=== PATIENT | male | born 1985 | race African-American/Black ===

== ENCOUNTER 2020-11-10 07:09 | Inpatient (IN) | payer BC ==
[2020-11-10] MEDS ORDERED: NORMAL SALINE 1000 ML 1,000 ML IV ONE ×2 (07:26→10:40)
--- NOTE | 2020-11-10 07:49 | ER Document Report ---
Entered by PALMA BENJAMIN SCRIBE 11/10/20 0713 Acting as scribe for:MO MISHRA MD ED Respiratory Problem - General Stated Complaint: DIFFICULTY BREATHING Time Seen by Provider: 11/10/20 07:12 Mode of Arrival: Ambulatory Information source: Patient Notes: This 34 year old male patient with no significant past medical history presents to the ED today for evaluation. Patient states that his symptoms started with fatigue and nonproductive cough x2 weeks ago, but the coughing stopped x6 days ago. He also reports intermittent fevers with body aches during the first week of symptom onset. He started becoming short of breath and dyspneic on exertion this week. He mentions that he was seen x2 days ago at a local urgent care and was told that he tested negative for COVID. He was prescribed an albuterol inhaler. He did not receive a flu shot this flu season. Per nursing, patient was 92% on room air. When asked to take a deep breath on exam, patient reports right-sided pleuritic chest pain. - Related Data Allergies/Adverse Reactions: No Known Allergies Allergy (Verified 08/14/12 08:34) Past Medical History - General Information source: Patient - Social History Smoking Status: Never Smoker Cigarette use (# per day): No Chew tobacco use (# tins/day): No Smoking Education Provided: No Frequency of alcohol use: None Drug Abuse: None Family History: Reviewed & Not Pertinent - Immunizations Immunizations up to date: Yes Hx Diphtheria, Pertussis, Tetanus Vaccination: Yes - 2006 Review of Systems - Review of Systems Constitutional: See HPI, Fever EENT: No symptoms reported Cardiovascular: See HPI, Chest pain - pleuritic, Dyspnea Respiratory: See HPI, Cough, Short of breath. denies: Sputum Gastrointestinal: No symptoms reported Genitourinary: No symptoms reported Male Genitourinary: No symptoms reported Musculoskeletal: See HPI, Muscle pain Skin: No symptoms reported Hematologic/Lymphatic: No symptoms reported Neurological/Psychological: No symptoms reported -: Yes All other systems reviewed and negative Physical Exam - Vital signs Vitals: Temp Pulse Resp BP 98.3 F 122 H 18 143/78 H 11/10/20 07:15 11/10/20 07:15 11/10/20 07:15 11/10/20 07:15 Interpretation: Normal - General General appearance: Alert In distress: None - HEENT Head: Normocephalic, Atraumatic Eyes: Normal Pupils: PERRL - Respiratory Respiratory status: No respiratory distress - 96% on 2L NC Chest status: Nontender Breath sounds: Normal. No: Wheezing Chest palpation: Normal - Cardiovascular Rhythm: Regular, Tachycardia Heart sounds: Normal auscultation Murmur: No - Abdominal Inspection: Normal Distension: No distension Bowel sounds: Normal Tenderness: Nontender - Abdomen soft Organomegaly: No organomegaly - Back Back: Normal, Nontender - Extremities General upper extremity: Normal inspection General lower extremity: Normal inspection. No: Edema - Neurological Neuro grossly intact: Yes Orientation: AAOx4 Kimberly Coma Scale Eye Opening: Spontaneous Christiano Coma Scale Verbal: Oriented Christiano Coma Scale Motor: Obeys Commands Kimberly Coma Scale Total: 15 - Psychological Associated symptoms: Normal affect, Normal mood - Skin Skin Temperature: Warm Skin Moisture: Dry Skin Color: Normal Course - Re-evaluation Re-evalutation: 11/10/20 10:42 The patient was evaluated during the global COVID-19 pandemic and that diagnosis was suspected/considered upon their initial presentation. Their evaluation, treatment and testing was consistent with current guidelines for patients who present with complaints or symptoms that may be related to COVID-19. 11/10/20 12:00 Patient has a positive coronavirus test. LDH is 417, serum ferritin is 6240, CRP is 227, chest x-ray suggest Covid pneumonia. D-dimer is elevated. CTA chest is ordered to exclude pulmonary emboli as a cause of his dyspnea and hypoxemia. 11/10/20 12:34 When the patient took off the oxygen to walk to the restroom, his oxygen saturation dropped to 89%. - Vital Signs Vital signs: Temp Pulse Resp BP Pulse Ox 98.3 F 122 H 34 H 138/79 H 98 11/10/20 07:15 11/10/20 07:15 11/10/20 14:01 11/10/20 13:02 11/10/20 14:01 - Laboratory Results Result Diagrams: 11/10/20 07:30 11/10/20 07:30 Laboratory Results Interpreted: 11/10/20 11/10/20 11/10/20 07:30 07:30 07:30 RDW 15.4 H Plt Count 458 H Baso % (Auto) 2.5 H D-Dimer 1.16 H BUN 22 H Creatinine 1.71 H Est GFR ( Amer) 55 L Est GFR (MDRD) Non-Af 46 L Glucose 114 H Ferritin 6240.00 H AST 140 H ALT 127 H Alkaline Phosphatase 34 L Lactate Dehydrogenase Creatine Kinase 473 H C-Reactive Protein 227.7 H Urine Protein Urine Blood 11/10/20 11/10/20 07:30 12:24 RDW Plt Count Baso % (Auto) D-Dimer BUN Creatinine Est GFR ( Amer) Est GFR (MDRD) Non-Af Glucose Ferritin AST ALT Alkaline Phosphatase Lactate Dehydrogenase 714 H Creatine Kinase C-Reactive Protein Urine Protein 30 H Urine Blood SMALL H Critical Laboratory Results Reviewed: Yes Attending or Supervising Physician who Reviewed Labs: MO MISHRA - Covid +, elevated Cr and BUN, ferritin, CRP, LDH - Radiology Results Radiology Results Interpreted: 11/10/20 12:34 CTA chest does not show pulmonary emboli, consistent with bilateral Covid pneumonia. Critical Radiology Results Reviewed: Yes Attending or Supervising Physician who Reviewed Radiology: MO MISHRA hest x-ray suggest Covid pneumonia Critical Care Note - Critical Care Note Total time excluding time spent on procedures (mins): 40 Comments: At least 40 minutes spent obtaining history from patient and his father. Time spent evaluating the patient with frequent reevaluations on and off oxygen. Time spent reviewing lab work, confirming he was Covid positive and had extremely high Covid markers suggesting a potentially laila course for the Covid pneumonia that was seen on his chest x-ray. Time spent with the hospitalist discussing the case and getting the patient admitted, having to go back to the patient because he indicated to the hospitalist he did not want to be admitted so I spent time discussing options and risks and essentially convincing the patient that he needed to stay in the hospital. Discharge - Discharge Clinical Impression: Pneumonia due to 2019-nCoV, Hypoxemia, Acute kidney injury, Tachycardia Condition: Stable Disposition: ADMITTED INPATIENT Admitting Provider: Evita (Hospitalist) Unit Admitted: IMCU I personally performed the services described in the documentation, reviewed and edited the documentation which was dictated to the scribe in my presence, and it accurately records my words and actions.
[2020-11-10 07:50] LABS: ABSOLUTE BASOPHILS # (AUTO) 0.2 10^3/uL (0.0-0.2); ABSOLUTE LYMPHOCYTES (AUTO) 1.7 10^3/uL (0.5-4.7); ABSOLUTE MONOCYTES (AUTO) 0.9 10^3/uL (0.1-1.4); ABSOLUTE NEUT (AUTO) 5.5 10^3/uL (1.7-8.2); BASOPHILS % (AUTO) 2.5 % (0-2); HEMATOCRIT 39.5 % (37.9-51.0); HEMOGLOBIN 13.5 g/dL (13.5-17.0); LYMPHOCYTES % (AUTO) 20.4 % (13-45); MEAN CORPUSCULAR HEMOGLOBIN 28.5 pg (27.0-33.4); MEAN CORPUSCULAR VOLUME 84 fl (80-97); MONOCYTES % (AUTO) 11.1 % (3-13); PLATELET COUNT 458 10^3/uL (150-450); RED BLOOD COUNT 4.73 10^6/uL (4.35-5.55); RED CELL DISTRIBUTION WIDTH 15.4 % (11.5-14.0); TOTAL CELLS COUNTED % (AUTO) 100 %; WHITE BLOOD COUNT 8.3 10^3/uL (4.0-10.5)
[2020-11-10 08:06] LABS: ALBUMIN 3.7 g/dL (3.5-5.0); ALKALINE PHOSPHATASE 34 U/L (38-126); ANION GAP 6 (5-19); ASPARTATE AMINO TRANSFERASE 140 U/L (17-59); BILIRUBIN,DIRECT 0.4 mg/dL (0.0-0.4); BILIRUBIN,TOTAL 0.8 mg/dL (0.2-1.3); BLOOD UREA NITROGEN 22 mg/dL (7-20); CALCIUM 8.8 mg/dL (8.4-10.2); CARBON DIOXIDE 29 mmol/L (22-30); CHLORIDE 103 mmol/L (98-107); CREATINE KINASE 473 U/L (55-170); GLUCOSE 114 mg/dL (75-110); POTASSIUM 4.8 mmol/L (3.6-5.0); TOTAL PROTEIN 6.9 g/dL (6.3-8.2)
--- NOTE | 2020-11-10 08:08 | RADIOLOGY REPORT (SQ) ---
EXAM DESCRIPTION: CHEST SINGLE VIEW IMAGES COMPLETED DATE/TIME: 11/10/2020 7:36 am REASON FOR STUDY: JOSEPH X 2 weeks, cough, fever COMPARISON: None. EXAM PARAMETERS: NUMBER OF VIEWS: One view. TECHNIQUE: Single frontal radiographic view of the chest acquired. RADIATION DOSE: NA LIMITATIONS: None. FINDINGS: LUNGS AND PLEURA: There is patchy bilateral airspace disease left greater than right worri some for multifocal pneumonia No pleural effusion. No pneumothorax. MEDIASTINUM AND HILAR STRUCTURES: No masses. Contour normal. HEART AND VASCULAR STRUCTURES: Heart normal in size. Normal vasculature. BONES: No acute findings. HARDWARE: None in the chest. OTHER: No other significant finding. IMPRESSION: Patchy bilateral alveolar and interstitial infiltrates left greater than right worrisome for pneumonia TECHNICAL DOCUMENTATION: JOB ID: [id number] 2010 [employer]- All Rights Reserved Reading location - IP/workstation name: [id number]
[2020-11-10 08:38] LABS: C-REACTIVE PROTEIN 227.7 mg/L (<10.0)
--- NOTE | 2020-11-10 12:21 | RADIOLOGY REPORT (SQ) ---
EXAM DESCRIPTION: CTA CHEST IMAGES COMPLETED DATE/TIME: 11/10/2020 9:06 am REASON FOR STUDY: Covid pneumonia, elevated D-dimer, hypoxia COMPARISON: Single-view chest same date. TECHNIQUE: CT scan of the chest performed using helical scanning technique with dynamic intravenous contrast injection. Images reviewed with lung, soft tissue and bone windows. Reconstructed coronal and sagittal MPR images reviewed. Additional 3 dimensional post-processing performed to develop Maximal Intensity Projection images (AZ P). All images stored on PACS. All CT scanners at this facility use dose modulation, iterative reconstruction, and/or weight based d osing when appropriate to reduce radiation dose to as low as reasonably achievable (ALARA). [facility]: Dose Right [facility]: CareDose [facility]: Dose Right [facility]: Teradose 4D [facility]: Infusion Resource CONTRAST TYPE AND DOSE: contrast/concentration: Isovue 300.00 mmol/ml; Total Contrast Delivered: 74. 0 ml; Total Saline Delivered: 47.0 ml Suboptimal contrast bolus. RENAL FUNCTION: Creatinine 1.71 RADIATION DOSE: CT Rad equipment meets quality standard of care and radiation dose reduction techniq ues were employed. CTDIvol: 6.6 - 18.3 mGy. DLP: 635 mGy-cm. . LIMITATIONS: Poor contrast bolus. Mild motion artifact. FINDINGS: LUNGS AND PLEURA: Patchy bilateral ground-glass opacities most pronounced in the upper lob es. There are some regions of consolidation posteriorly in the left upper lobe and anteriorly in the right upper lobe. Mild regions of consolidation posteriorly in the right middle lobe with mild patc hy opacities in the lower lobes bilaterally. Trace pleural fluid, slightly more pronounced on the le ft. No pneumothorax. AORTA AND GREAT VESSELS: No aneurysm. No dissection. HEART: No pericardial effusion. No significant coronary artery calcifications. PULMONARY ARTERIES: Suboptimal contrast bolus. No central pulmonary embolism identified. Some of th e distal most branches are not optimally assessed given contrast bolus is well as some mild motion ar tifact. HILAR AND MEDIASTINAL STRUCTURES: Mildly enlarged lymph nodes are probably reactive. HARDWARE: None in the chest. UPPER ABDOMEN: No significant findings. Limited exam. THYROID AND OTHER SOFT TISSUES: No masses. No adenopathy. BONES: No acute or significant finding. 3D MIPS: Confirm above findings. OTHER: No other significant finding. IMPRESSION: 1. Suboptimal contrast bolus for evaluation of the distal pulmonary arterial branches. No central pulmonary embolism. 2. Bilateral patchy ground-glass and consolidative opacities. While nonspecific, findings are likel y related to pneumonia secondary to COVID infection given reported history. COMMENT: Quality ID # [id number]: Final reports with documentation of one or more dose reduction techniques (e.g., Automated exposure control, adjustment of the mA and/or kV according to patient size, use of iterative reconstruction technique) TECHNICAL DOCUMENTATION: JOB ID: [id number] 2010 [employer]- All Rights Reserved Reading location - IP/workstation name: [email or web address]
[2020-11-10 12:56] LABS: APPEARANCE,URINE SLIGHTLY-CLOUDY; BILIRUBIN,URINE NEGATIVE (NEGATIVE); COLOR,URINE YELLOW; GLUCOSE, URINE NEGATIVE (NEGATIVE); KETONES,URINE NEGATIVE (NEGATIVE); LEUKOCYTE ESTERASE,URINE NEGATIVE (NEGATIVE); NITRITE,URINE NEGATIVE (NEGATIVE); PROTEIN,URINE 30 mg/dL (NEGATIVE); URINE SPECIFIC GRAVITY 1.034; UROBILINOGEN,URINE NEGATIVE mg/dL (<2.0)
[2020-11-10] MEDS ORDERED: ACETAMINOPHEN 325 MG TABLET PO PRN (13:10)
[2020-11-10] MEDS ORDERED: PROMETHAZINE HCL 25 MG TABLET PO PRN (13:10)
[2020-11-10] MEDS ORDERED: MAG HYDROX/AL HYDROX/SIMETH SUSP 30 ML UDCUP PO PRN (13:10)
[2020-11-10] MEDS ORDERED: TEMAZEPAM 15 MG CAPSULE PO PRN (13:10)
[2020-11-10] MEDS ORDERED: OXYCODONE-ACETAMINOPHEN 5-325 MG TABLET PO PRN (13:10)
[2020-11-10] MEDS ORDERED: MAGNESIUM HYDROXIDE SUSP 30 ML UDCUP PO PRN (13:10)
[2020-11-10] MEDS ORDERED: 1/2 NORMAL SALINE 1,000 ML IV PRN (13:10)
[2020-11-10] MEDS ORDERED: IPRATROPIUM/ALBUTEROL 0.5-2.5 MG/3 ML AMPUL NEB PRN (13:10)
[2020-11-10] MEDS ORDERED: ONDANSETRON HCL INJ/PF 4 MG/2 ML SDV IV PRN (13:10)
[2020-11-10] MEDS ORDERED: PROMETHAZINE HCL INJ 25 MG/1 ML VIAL IV PRN (13:10)
[2020-11-10] MEDS ORDERED: ONDANSETRON 4 MG TAB.RAPDIS PO PRN (13:10)
[2020-11-10] MEDS ORDERED: LABETALOL HCL INJ 20 MG/4 ML DISP.SYRIN IV PRN (13:16)
[2020-11-10] MEDS ORDERED: NORMAL SALINE 1000 ML 1,000 ML IV PRN (13:20)
[2020-11-10] MEDS ORDERED: AZITHROMYCIN 250 MG TABLET PO ONE (14:00)
[2020-11-10 14:28] LABS: FIBRINOGEN 539 mg/dL (209-497); INTERNATIONAL RATION (INR) 1.19; PROTHROMBIN TIME 15.3 SEC (11.4-15.4)
[2020-11-10 14:29] LABS: PARTIAL THROMBOPLASTIN TIME 34.4 SEC (23.5-35.8)
[2020-11-10 14:31] LABS: D-DIMER 0.99 ug/mL (0.00-0.50)
[2020-11-10 14:37] LABS: ARTERIAL BLOOD BASE EXCESS 0.3 mmol/L; ARTERIAL BLOOD FIO2 28%; ARTERIAL BLOOD HCO3 24.2 mmol/L (20-24); ARTERIAL BLOOD O2 SATURATION 97.2 % (94-98); ARTERIAL BLOOD PCO2 36.7 mmHg (35-45); ARTERIAL BLOOD PH 7.44 (7.35-7.45); ARTERIAL BLOOD PO2 90.7 mmHg (80-100); ARTERIAL BLOOD TOTAL CO2 25.3 mmol/L (23-27)
[2020-11-10] MEDS ORDERED: IVERMECTIN 3 MG TABLET PO SCH (15:00)
[2020-11-10] MEDS: CHOLECALCIFEROL (D3) 1,000 UNIT (25 MCG) TABLET PO SCH (15:13)
[2020-11-10] MEDS: ZINC SULFATE 220 MG CAPSULE PO SCH (15:13)
[2020-11-10] MEDS: ASPIRIN 81 MG TABLET, ENT COATED PO SCH (15:13)
[2020-11-10] MEDS: ASCORBIC ACID 500 MG TABLET PO SCH ×2 (15:13→18:27)
--- NOTE | 2020-11-10 17:06 | PDOC H&P ---
History of Present Illness Admission Date/PCP: 11/10/20 13:21 History of Present Illness: BALJINDER BOLIVAR is a 34 year old male with no significant past medical history presenting to ED complaining of worsening shortness of breath and fatigue. Patient developed fatigue and nonproductive cough about 2 weeks ago, his cough stopped however he still getting occasional fever and chills, persistent body ache and fatigue, and dyspnea on exertion. Patient seeked medical attention at a local urgent care 2 days prior to admission and was told that her COVID-19 test was negative, patient was discharged home with inhaled albuterol. Patient is stating that he has been treating his body aches with [id number]-fimiefa ibuprofen, he is also stating that he does not have much appetite and his p.o. intake has been down since getting sick. Patient denies any chest pain, nausea, vomiting, diarrhea, constipation or any urinary symptoms. In ED he was noted to be hypoxic on room air, with elevated inflammatory markers, a CTA was negative for PE however showed bilateral patchy groundglass and consolidative opacities likely due to pneumonia caused by COVID- 19 infection. Hospitalist was consulted for admission. Past Medical History Cardiac Medical History: Denies: Coronary Artery Disease, Hypertension Pulmonary Medical History: Denies: Asthma Endocrine Medical History: Denies: Diabetes Mellitus Type 1, Diabetes Mellitus Type 2 Psychiatric Medical History: Denies: Depression Social History Smoking Status: Never Smoker Family History Family History: Reviewed & Not Pertinent Parental Family History Reviewed: Yes Children Family History Reviewed: Yes Sibling(s) Family History Reviewed.: Yes Medication/Allergy Home Medications: No Home Medications 1 08/07/12 Allergies/Adverse Reactions: No Known Allergies Allergy (Verified 08/14/12 08:34) Review of Systems Review of Systems: as per hpi Physical Exam Vital Signs: Temp Pulse Resp BP Pulse Ox 98.5 F 95 20 144/90 H 98 11/10/20 16:54 11/10/20 16:54 11/10/20 16:54 11/10/20 16:54 11/10/20 16:54 Intake & Output 11/09/20 11/10/20 11/11/20 06:59 06:59 06:59 Intake Total 1999 Balance 1999 Weight 98.8 kg General appearance: PRESENT: no acute distress, well-developed, well-nourished Head exam: PRESENT: atraumatic, normocephalic Neck exam: ABSENT: carotid bruit, JVD, lymphadenopathy, thyromegaly Respiratory exam: PRESENT: clear to auscultation minda. ABSENT: rales, rhonchi, wheezes Cardiovascular exam: PRESENT: RRR, tachycardia. ABSENT: diastolic murmur, rubs, systolic murmur GI/Abdominal exam: PRESENT: normal bowel sounds, soft. ABSENT: distended, guarding, mass, organolmegaly, rebound, tenderness Neurological exam: PRESENT: alert, awake, oriented to person, oriented to place, oriented to time, oriented to situation, CN II-XII grossly intact. ABSENT: motor sensory deficit Skin exam: PRESENT: dry, intact, warm. ABSENT: cyanosis, rash Results Laboratory Results: 11/10/20 07:30 11/10/20 07:30 11/10/20 11/10/20 11/10/20 07:30 07:30 12:24 WBC 8.3 RBC 4.73 Hgb 13.5 Hct 39.5 MCV 84 MCH 28.5 MCHC 34.0 RDW 15.4 H Plt Count 458 H Seg Neutrophils % 66.0 Carbonic Acid HCO3/H2CO3 Ratio ABG pH ABG pCO2 ABG pO2 ABG HCO3 ABG O2 Saturation ABG Base Excess FiO2 Sodium 138.0 Potassium 4.8 Chloride 103 Carbon Dioxide 29 Anion Gap 6 BUN 22 H Creatinine 1.71 H Est GFR ( Amer) 55 L Glucose 114 H Calcium 8.8 Magnesium 2.1 Ferritin 6240.00 H Total Bilirubin 0.8 AST 140 H Alkaline Phosphatase 34 L C-Reactive Protein 227.7 H Total Protein 6.9 Albumin 3.7 Urine Color YELLOW Urine Appearance SLIGHTLY-CLOUDY Urine pH 6.0 Ur Specific Brimley 1.034 Urine Protein 30 H Urine Glucose (UA) NEGATIVE Urine Ketones NEGATIVE Urine Blood SMALL H Urine Nitrite NEGATIVE Ur Leukocyte Esterase NEGATIVE Urine WBC (Auto) 4 Urine RBC (Auto) 1 Blood Type 11/10/20 11/10/20 14:06 14:19 WBC RBC Hgb Hct MCV MCH MCHC RDW Plt Count Seg Neutrophils % Carbonic Acid 1.10 HCO3/H2CO3 Ratio 22:1 ABG pH 7.44 ABG pCO2 36.7 ABG pO2 90.7 ABG HCO3 24.2 H ABG O2 Saturation 97.2 ABG Base Excess 0.3 FiO2 28% Sodium Potassium Chloride Carbon Dioxide Anion Gap BUN Creatinine Est GFR ( Amer) Glucose Calcium Magnesium Ferritin Total Bilirubin AST Alkaline Phosphatase C-Reactive Protein Total Protein Albumin Urine Color Urine Appearance Urine pH Ur Specific Brimley Urine Protein Urine Glucose (UA) Urine Ketones Urine Blood Urine Nitrite Ur Leukocyte Esterase Urine WBC (Auto) Urine RBC (Auto) Blood Type O POSITIVE 11/10/20 11/10/20 07:30 07:30 Creatine Kinase 473 H Troponin I < 0.012 Impressions: Chest X-Ray 11/10/20 07:25 IMPRESSION: Patchy bilateral alveolar and interstitial infiltrates left greater than right worrisome for pneumonia Chest/Abdomen CTA 11/10/20 10:36 IMPRESSION: 1. Suboptimal contrast bolus for evaluation of the distal pulmonary arterial branches. No central pulmonary embolism. 2. Bilateral patchy ground-glass and consolidative opacities. While nonspecific, findings are likely related to pneumonia secondary to COVID infection given reported history. Assessment and Plan - Diagnosis (1) Acute respiratory failure with hypoxia Is this a current diagnosis for this admission?: Yes Plan: Complaining of dyspnea on exertion and fatigue on admission. Noted to have elevated LFTs, LDH, C-reactive protein, sed rate, and ferritin. COVID-19 serology positive. CTA chest negative for PE however positive for bilateral patchy consolidation likely pneumonia caused by COVID-19 infection. Admit to IMCU, as needed DuoNebs, supplemental oxygen, IV steroids, empiric IV antibiotics, pulmonary toileting, ivermectin. Pending convalescent plasma transfusion. (2) Acute kidney injury Is this a current diagnosis for this admission?: Yes Plan: Nonoliguric. Likely prerenal due to low p.o. intake and NSAIDs. Patient has been taking ibuprofen daily for the last 2 weeks. Cautious volume resuscitation guided by volume status, monitor electrolytes and replace as needed. Avoid nephrotoxic meds. If no improvement will obtain renal ultrasound and consult nephrology. [facility] tomorrow. (3) Pneumonia due to 2019-nCoV Is this a current diagnosis for this admission?: Yes Plan: Plan as per #1. - Time Time Spent with patient: 35 or more minutes Anticipated Discharge Disposition: Home, Self Care Anticipated Discharge Timeframe: within 48 hours
[2020-11-10] MEDS ORDERED: IVERMECTIN 3 MG TABLET ONE (18:18)
[2020-11-10] MEDS: FAMOTIDINE 20 MG TABLET PO SCH (21:17)
[2020-11-10] MEDS: METHYLPREDNISOLONE INJ 40 MG/1 ML SDV IV SCH (21:17)
[2020-11-11 06:47] LABS: HEMATOCRIT 39.4 % (37.9-51.0); HEMOGLOBIN 13.3 g/dL (13.5-17.0); MEAN CORPUSCULAR HEMOGLOBIN 28.3 pg (27.0-33.4); MEAN CORPUSCULAR HGB CONC 33.7 g/dL (32.0-36.0); MEAN CORPUSCULAR VOLUME 84 fl (80-97); PLATELET COUNT 445 10^3/uL (150-450); RED BLOOD COUNT 4.69 10^6/uL (4.35-5.55); RED CELL DISTRIBUTION WIDTH 15.5 % (11.5-14.0); WHITE BLOOD COUNT 6.3 10^3/uL (4.0-10.5)
[2020-11-11 07:06] LABS: ALBUMIN 3.6 g/dL (3.5-5.0); ALKALINE PHOSPHATASE 32 U/L (38-126); ANION GAP 11 (5-19); ASPARTATE AMINO TRANSFERASE 191 U/L (17-59); BILIRUBIN,DIRECT 0.4 mg/dL (0.0-0.4); BILIRUBIN,TOTAL 0.7 mg/dL (0.2-1.3); BLOOD UREA NITROGEN 18 mg/dL (7-20); CARBON DIOXIDE 25 mmol/L (22-30); CHLORIDE 106 mmol/L (98-107); GLUCOSE 121 mg/dL (75-110); TOTAL PROTEIN 6.9 g/dL (6.3-8.2)
[2020-11-11 07:21] LABS: C-REACTIVE PROTEIN 144.8 mg/L (<10.0)
[2020-11-11 07:44] LABS: ABSOLUTE LYMPHOCYTES# (MANUAL) 1.3 10^3/uL (0.5-4.7); ABSOLUTE MONOCYTES # (MANUAL) 0.3 10^3/uL (0.1-1.4); BAND NEUTROPHILS % (MANUAL) 1 % (3-5); BASOPHILS % (MANUAL) 0 % (0-2); EOSINOPHILS % (MANUAL) 0 % (0-6); LYMPHOCYTES % (MANUAL) 14 % (13-45); METAMYELOCYTES % (MANUAL) 2 % (0-1); MONOCYTES % (MANUAL) 4 % (3-13); SEGMENTED NEUTROPHILS % (MAN) 73 % (42-78); TOTAL CELLS COUNTED 100
[2020-11-11 07:45] LABS: ANISOCYTOSIS SLIGHT; POIKILOCYTOSIS SLIGHT; POLYCHROMASIA SLIGHT; SCHISTOCYTES SLIGHT; TARGET CELLS 1+; TEAR DROP CELLS SLIGHT
[2020-11-11 07:46] LABS: PLATELET COMMENT ADEQUATE
[2020-11-11] MEDS ORDERED: CALCIUM GLUCONATE 1000 MG/10 ML INJ IV ONE (08:15)
[2020-11-11] MEDS ORDERED: SODIUM POLYSTYRENE SULFONATE 15 GM/60 ML PO ONE ×2 (08:15→14:00)
[2020-11-11] MEDS ORDERED: ALBUTEROL SULFATE 0.042% NEB (1.25 MG/3 ML) AMPUL NEB ONE (08:15)
[2020-11-11] MEDS: CHOLECALCIFEROL (D3) 1,000 UNIT (25 MCG) TABLET PO SCH (09:05)
[2020-11-11] MEDS: METHYLPREDNISOLONE INJ 40 MG/1 ML SDV IV SCH (09:05)
[2020-11-11] MEDS: FAMOTIDINE 20 MG TABLET PO SCH (09:05)
[2020-11-11] MEDS: ASCORBIC ACID 500 MG TABLET PO SCH ×2 (09:05→17:32)
[2020-11-11] MEDS: ASPIRIN 81 MG TABLET, ENT COATED PO SCH (09:05)
[2020-11-11] MEDS: ZINC SULFATE 220 MG CAPSULE PO SCH (09:05)
[2020-11-11] MEDS ORDERED: CALCIUM GLUCONATE 1 GM/NS 50 ML RTU IV ONE (09:30)
[2020-11-11] MEDS ORDERED: ENOXAPARIN SODIUM INJ 60 MG/0.6 ML DISP.SYRIN SUBCUT SCH (10:00)
[2020-11-11] MEDS ORDERED: ENOXAPARIN SODIUM INJ 40 MG/0.4 ML DISP.SYRIN SUBCUT SCH ×2 (10:00)
[2020-11-11] MEDS ORDERED: AZITHROMYCIN 250 MG TABLET PO SCH (10:00)
[2020-11-11 13:12] LABS: ANION GAP 12 (5-19); BLOOD UREA NITROGEN 19 mg/dL (7-20); CALCIUM 9.5 mg/dL (8.4-10.2); CARBON DIOXIDE 24 mmol/L (22-30); CHLORIDE 107 mmol/L (98-107); GLUCOSE 138 mg/dL (75-110)
[2020-11-11 13:13] LABS: POTASSIUM 5.4 mmol/L (3.6-5.0)
[2020-11-11 17:02] VITALS: BP 130/62
[2020-11-11] MEDS ORDERED: METHYLPREDNISOLONE INJ 125 MG/2 ML SDV IV SCH (22:00)
--- NOTE | 2020-11-12 12:12 | PDOC DISCHARGE SUMMARY ---
Impression - Admit/DC Date/PCP Admission Date/Primary Care Provider: 11/10/20 13:21 Discharge Date: 11/12/20 - Discharge Diagnosis (1) Acute respiratory failure with hypoxia Is this a current diagnosis for this admission?: Yes (2) Acute kidney injury Is this a current diagnosis for this admission?: Yes (3) Pneumonia due to 2019-nCoV Is this a current diagnosis for this admission?: Yes - Additional Information Discharge Diet: As Tolerated Discharge Activity: Activity As Tolerated Prescriptions: Albuterol Sulfate [Albuterol Sulfate Hfa] 6.7 gm IH Q6 7 Days #1 hfa.aer.ad Aspirin 81 mg PO DAILY 7 Days #7 tab.chew Prednisone [Deltasone 20 mg Tablet] 40 mg PO DAILY 8 Days #4 tablet Home Medications: No Home Medications 1 08/07/12 Albuterol Sulfate [Albuterol Sulfate Hfa] 6.7 gm IH Q6 7 Days #1 hfa.aer.ad 11/11/20 Aspirin 81 mg PO DAILY 7 Days #7 tab.chew 11/11/20 Prednisone [Deltasone 20 mg Tablet] 40 mg PO DAILY 8 Days #4 tablet 11/11/20 History of Present Illiness History of Present Illness: BALJINDER BOLIVAR is a 34 year old male with no significant past medical history presenting to ED complaining of worsening shortness of breath and fatigu e. Patient developed fatigue and nonproductive cough about 2 weeks ago, his cough stopped however he still getting occasional fever and chills, persistent body ache and fatigue, and dyspnea on exertion. Patient seeked medical attention at a local urgent care 2 days prior to admission and was told that her COVID-19 test was negative, patient was discharged home with inhaled albuterol. Patient is stating that he has been treating his body aches with [id number] ibuprofen, he is also stating that he does not have much appetite and his p.o. intake has been down since getting sick. Patient denies any chest pain, nausea, vomiting, diarrhea, constipation or any urinary symptoms. In ED he was noted to be hypoxic on room air, with elevated inflammatory markers, a CTA was negative for PE however showed bilateral patchy groundglass and consolidative opacities likely due to pneumonia caused by COVID- 19 infection. Hospitalist was consulted for admission. Hospital Course Hospital Course: (1) Acute respiratory failure with hypoxia Much improved. SPO2 WNL on RA. Patient was ambulated before discharge without oxygen with no significant drop in his SPO2. Complaining of dyspnea on exertion and fatigue on admission. Noted to have elevated LFTs, LDH, C-reactive protein, sed rate, and ferritin. COVID-19 serology positive. CTA chest negative for PE however positive for bilateral patchy consolidation likely pneumonia caused by COVID-19 infection. Was admitted to admit to IMCU, as needed DuoNebs, supplemental oxygen, IV ster oids, empiric IV antibiotics, pulmonary toileting, ivermectin. Patient is still had elevated LFTs, CRP, D-dimer and extremely elevated ferritin on the day of discharge. Patient is strongly advised to follow-up with PCP to recheck his ferritin and LFTs. Denied any history of sickle cell, iron overload, rheumatological disorder or any history of hepatitis or HIV. Could have benefited from another day of observation however patient was very anxious to be discharged home. (2) Acute kidney injury Resolved. Likely prerenal due to low p.o. intake and NSAIDs. Patient has been taking ibuprofen daily for the last 2 weeks. Cautious volume resuscitation guided by volume status, monitor electrolytes and replace as needed. Patient strongly encouraged to avoid NSAIDs in the future and follow-up with PCP for recheck checking his kidney function. (3) Pneumonia due to 2019-nCoV Plan as per #1. Physical Exam Vital Signs: Temp Pulse Resp BP Pulse Ox 98.0 F 97 18 130/62 H 99 11/11/20 18:56 11/11/20 18:56 11/11/20 18:56 11/11/20 18:56 11/11/20 18:56 Intake & Output 11/11/20 11/12/20 11/13/20 06:59 06:59 06:59 Intake Total 2667 705 Output Total 200 Balance 2467 705 Weight 97.5 kg General appearance: PRESENT: no acute distress, obese, well-developed, well- nourished Head exam: PRESENT: atraumatic, normocephalic Neck exam: ABSENT: carotid bruit, JVD, lymphadenopathy, thyromegaly Respiratory exam: PRESENT: clear to auscultation minda. ABSENT: rales, rhonchi, wheezes Cardiovascular exam: PRESENT: RRR. ABSENT: diastolic murmur, rubs, systolic murmur GI/Abdominal exam: PRESENT: normal bowel sounds, soft. ABSENT: distended, guarding, mass, organolmegaly, rebound, tenderness Extremities exam: PRESENT: full ROM. ABSENT: calf tenderness, clubbing, pedal edema Neurological exam: PRESENT: alert, awake, oriented to person, oriented to place, oriented to time, oriented to situation, CN II-XII grossly intact. ABSENT: motor sensory deficit Skin exam: PRESENT: dry, intact, warm. ABSENT: cyanosis, rash Results Laboratory Results: WBC 6.3 10^3/uL (4.0-10.5) 11/11/20 05:40 RBC 4.69 10^6/uL (4.35-5.55) 11/11/20 05:40 Hgb 13.3 g/dL (13.5-17.0) L 11/11/20 05:40 Hct 39.4 % (37.9-51.0) 11/11/20 05:40 MCV 84 fl (80-97) 11/11/20 05:40 MCH 28.3 pg (27.0-33.4) 11/11/20 05:40 MCHC 33.7 g/dL (32.0-36.0) 11/11/20 05:40 RDW 15.5 % (11.5-14.0) H 11/11/20 05:40 Plt Count 445 10^3/uL (150-450) 11/11/20 05:40 Lymph % (Auto) Not Reportable 11/11/20 05:40 [place] % (Auto) Not Reportable 11/11/20 05:40 Eos % (Auto) Not Reportable 11/11/20 05:40 Baso % (Auto) Not Reportable 11/11/20 05:40 Absolute Neuts (auto) Not Reportable 11/11/20 05:40 Absolute Lymphs (auto) Not Reportable 11/11/20 05:40 Absolute Monos (auto) Not Reportable 11/11/20 05:40 Absolute Eos (auto) Not Reportable 11/11/20 05:40 Absolute Basos (auto) Not Reportable 11/11/20 05:40 Total Counted 100 11/11/20 05:40 Seg Neutrophils % Not Reportable 11/11/20 05:40 Seg Neuts % (Manual) 73 % (42-78) 11/11/20 05:40 Band Neutrophils % 1 % (3-5) L 11/11/20 05:40 Lymphocytes % (Manual) 14 % (13-45) 11/11/20 05:40 Atypical Lymphs % 6 % (0) 11/11/20 05:40 Monocytes % (Manual) 4 % (3-13) 11/11/20 05:40 Eosinophils % (Manual) 0 % (0-6) 11/11/20 05:40 Basophils % (Manual) 0 % (0-2) 11/11/20 05:40 Metamyelocytes % 2 % (0-1) H 11/11/20 05:40 Abs Neuts (Manual) 4.8 10^3/uL (1.7-8.2) 11/11/20 05:40 Abs Lymphs (Manual) 1.3 10^3/uL (0.5-4.7) 11/11/20 05:40 Abs Monocytes (Manual) 0.3 10^3/uL (0.1-1.4) 11/11/20 05:40 Absolute Eos (Manual) 0.0 10^3/uL (0.0-0.6) 11/11/20 05:40 Abs Basophils (Manual) 0.0 10^3/uL (0.0-0.2) 11/11/20 05:40 Platelet Comment ADEQUATE 11/11/20 05:40 Polychromasia SLIGHT 11/11/20 05:40 Poikilocytosis SLIGHT 11/11/20 05:40 Anisocytosis SLIGHT 11/11/20 05:40 Target Cells 1+ 11/11/20 05:40 Tear Drop Cells SLIGHT 11/11/20 05:40 Schistocytes SLIGHT 11/11/20 05:40 PT 15.3 SEC (11.4-15.4) 11/10/20 14:06 INR 1.19 11/10/20 14:06 APTT 34.4 SEC (23.5-35.8) 11/10/20 14:06 Fibrinogen 539 mg/dL (209-497) H 11/10/20 14:06 D-Dimer 0.99 ug/mL (0.00-0.50) H 11/10/20 14:06 Carbonic Acid 1.10 mmol/L (1.05-1.35) 11/10/20 14:19 HCO3/H2CO3 Ratio 22:1 11/10/20 14:19 ABG pH 7.44 (7.35-7.45) 11/10/20 14:19 ABG pCO2 36.7 mmHg (35-45) 11/10/20 14:19 ABG pO2 90.7 mmHg (80-100) 11/10/20 14:19 ABG HCO3 24.2 mmol/L (20-24) H 11/10/20 14:19 ABG Total CO2 25.3 mmol/L (23-27) 11/10/20 14:19 ABG O2 Saturation 97.2 % (94-98) 11/10/20 14:19 ABG Base Excess 0.3 mmol/L 11/10/20 14:19 FiO2 28% 11/10/20 14:19 Sodium 142.5 mmol/L (137-145) 11/11/20 12:41 Potassium 5.0 mmol/L (3.6-5.0) 11/11/20 18:43 Chloride 107 mmol/L (98-107) 11/11/20 12:41 Carbon Dioxide 24 mmol/L (22-30) 11/11/20 12:41 Anion Gap 12 (5-19) 11/11/20 12:41 BUN 19 mg/dL (7-20) 11/11/20 12:41 Creatinine 1.07 mg/dL (0.52-1.25) 11/11/20 12:41 Est GFR ( Amer) > 60 (>60) 11/11/20 12:41 Est GFR (MDRD) Non-Af > 60 (>60) 11/11/20 12:41 Glucose 138 mg/dL (75-110) H 11/11/20 12:41 Calcium 9.5 mg/dL (8.4-10.2) 11/11/20 12:41 Magnesium 2.1 mg/dL (1.6-2.3) 11/10/20 07:30 Ferritin 6410.00 ng/mL (17.9-464.0) H 11/11/20 05:40 Total Bilirubin 0.7 mg/dL (0.2-1.3) 11/11/20 05:40 Direct Bilirubin 0.4 mg/dL (0.0-0.4) 11/11/20 05:40 Neonat Total Bilirubin Not Reportable 11/11/20 05:40 Neonat Direct Bilirubin Not Reportable 11/11/20 05:40 Neonat Indirect Bili Not Reportable 11/11/20 05:40 AST 191 U/L (17-59) H 11/11/20 05:40 ALT 220 U/L (<50) H 11/11/20 05:40 Alkaline Phosphatase 32 U/L (38-126) L 11/11/20 05:40 Lactate Dehydrogenase 735 U/L (120-246) H 11/10/20 14:06 Creatine Kinase 473 U/L (55-170) H 11/10/20 07:30 Troponin I < 0.012 ng/mL 11/10/20 07:30 C-Reactive Protein 144.8 mg/L (<10.0) H 11/11/20 05:40 Total Protein 6.9 g/dL (6.3-8.2) 11/11/20 05:40 Albumin 3.6 g/dL (3.5-5.0) 11/11/20 05:40 Urine Color YELLOW 11/10/20 12:24 Urine Appearance SLIGHTLY-CLOUDY 11/10/20 12:24 Urine pH 6.0 (5.0-9.0) 11/10/20 12:24 Ur Specific [place] 1.034 11/10/20 12:24 Urine Protein 30 mg/dL (NEGATIVE) H 11/10/20 12:24 Urine Glucose (UA) NEGATIVE mg/dL (NEGATIVE) 11/10/20 12:24 Urine Ketones NEGATIVE mg/dL (NEGATIVE) 11/10/20 12:24 Urine Blood SMALL (NEGATIVE) H 11/10/20 12:24 Urine Nitrite NEGATIVE (NEGATIVE) 11/10/20 12:24 Urine Bilirubin NEGATIVE (NEGATIVE) 11/10/20 12:24 Urine Urobilinogen NEGATIVE mg/dL (<2.0) 11/10/20 12:24 Ur Leukocyte Esterase NEGATIVE (NEGATIVE) 11/10/20 12:24 Urine WBC (Auto) 4 /HPF 11/10/20 12:24 Urine RBC (Auto) 1 /HPF 11/10/20 12:24 Squamous Epi Cells Auto <1 /HPF 11/10/20 12:24 Urine Mucus (Auto) RARE /LPF 11/10/20 12:24 Urine Ascorbic Acid NEGATIVE (NEGATIVE) 11/10/20 12:24 COVID-19 Source Cancelled 11/10/20 08:23 COVID-19 (ABY) Cancelled 11/10/20 08:23 Influenza A (RT-PCR) NEGATIVE (NEGATIVE) 11/10/20 08:23 Influenza B (RT-PCR) NEGATIVE (NEGATIVE) 11/10/20 08:23 RSV (RT-PCR) NEGATIVE (NEGATIVE) 11/10/20 08:23 SARS-CoV-2 Rap RNA(RT-PCR) POSITIVE (NEGATIVE) 11/10/20 08:23 Blood Type O POSITIVE 11/10/20 14:06 11/10/20 07:30 Troponin I < 0.012 Impressions: Chest X-Ray 11/10/20 07:25 IMPRESSION: Patchy bilateral alveolar and interstitial infiltrates left greater than right worrisome for pneumonia Chest/Abdomen CTA 11/10/20 10:36 IMPRESSION: 1. Suboptimal contrast bolus for evaluation of the distal pulmonary arterial branches. No central pulmonary embolism. 2. Bilateral patchy ground-glass and consolidative opacities. While nonspecific, findings are likely related to pneumonia secondary to COVID infection given reported history. Stroke Is this a Stroke Patient?: No Acute Heart Failure Is this a Heart Failure Patient?: No
== END 2020-11-11 20:06 | disposition home or self-care (01) | DRG 177 ==
LOC: ER 07:09 → EH 13:21 → 3S 14:56
PROVIDERS: ADMIT Internal Medicine; ATTEND Internal Medicine
PROC: XW13325 Transfusion of Convalescent Plasma (Nonautologous) into Peripheral Vein, Percutaneous Approach, New Technology Group 5 (ICD-10-PCS; principal; 2020-11-10)
DX: U07.1 COVID-19 (principal); J12.82 Pneumonia due to coronavirus disease 2019; J96.01 Acute respiratory failure with hypoxia; N17.9 Acute kidney failure, unspecified
CPT/HCPCS: 36415; 36430; 36600; 71045; 71275; 80053; 81001; 82550; 82728; 82803; 83615; 83735; 84132; 84484; 85025; 85379; 85384; 85610; 85730; 86140; 86900; 86901; 94640; 96360; 96361; 99285; J0610; 0241U; C9803; J1650; J2920; J3490; J7030